=== PATIENT | female | born 1995 | race Caucasian/White ===

== ENCOUNTER 2018-05-10 13:48 | Emergency (ER) | payer MEDICAID, OTHER ==
[~2018-05-10] VITALS: Ht 175.3 cm; Wt 95.0 kg
--- NOTE | 2018-05-10 13:55 | NUR ---
PT TO ED IN CUSTODY WITH RITO AT BEDSIDE FOR HTN. BP UPON ARRIVAL IS 182/121. PT STATES IS 9.5 WEEKS . CONNECTED TO ALL MONITORS. HTN, TACKY 100S-110S, ALL OTHER VSS ON RA. PT STATES NO HTN HX. EKG COMPLETED. AWAITING EDMD ASSESSMENT.
[2018-05-10] MEDS ORDERED: DIPHENHYDRAMINE 25 MG CAPSULE ONE (14:09)
[2018-05-10 14:28] LABS: BASOPHILS # (AUTO) 0.02 x10^3/uL (0-0.1); BASOPHILS % (AUTO) 0 % (0-1); EOSINOPHILS # (AUTO) 0.01 x10^3/uL (0-0.4); EOSINOPHILS % (AUTO) 0 % (1-7); LYMPHOCYTES # (AUTO) 1.01 x10^3/uL (1-3.4); LYMPHOCYTES % (AUTO) 20 % (22-44); MD NO; MEAN CORPUSCULAR HGB CONC 33.3 g/dL (32.4-35.8); MEAN CORPUSCULAR VOLUME 90.3 fL (80-100); MEAN PLATELET VOLUME 10.1 fL (7.4-10.4); MONOCYTES # (AUTO) 0.37 x10^3/uL (0.2-0.8); MONOCYTES % (AUTO) 7 % (2-9); NEUTROPHILS # (AUTO) 3.68 x10^3/uL (1.8-6.8); NEUTROPHILS % (AUTO) 72 % (42-75); PLATELET COUNT 272 x10^3/uL (130-400); RED BLOOD COUNT 5.18 x10^6/uL (3.82-5.3); RED CELL DISTRIBUTION WIDTH 12.8 % (9.6-15.2)
[2018-05-10] MEDS ORDERED: PLEASE ENTER ALLERGIES MC SCH (14:30)
[2018-05-10] MEDS ORDERED: DIPHENHYDRAMINE 25 MG CAPSULE PO ONE (14:30)
[2018-05-10 14:35] LABS: MICROSCOPIC AUTO
[2018-05-10 14:38] LABS: CULTURE INDICATED? NO
[2018-05-10 14:38] LABS: ALBUMIN 3.7 g/dL (3.4-5.0); ANION GAP 7 mmol/L (5-15); CALCIUM 8.9 mg/dL (8.5-10.1); CHLORIDE 105 mmol/L (98-107); CREATININE 0.58 mg/dL (0.55-1.02)
--- NOTE | 2018-05-10 14:59 | NUR ---
ALL RESULTS BACK AT THIS TIME. BP DECLINING AFTER MEDICATION ADMINISTRATION. TACHY, ALL OTHER VSS ON RA. NO NEEDS AT THIS TIME. CHART UP FOR RECHECK.
[2018-05-10 16:07] VITALS: BP 154/95
--- NOTE | 2018-05-10 16:08 | NUR ---
EDMD TO BEDSIDE TO UPDATE ON POC. AWAITING DISPO.
== END 2018-05-10 16:48 | disposition home or self-care (01) ==
LOC: ED 15:10
DX: O16.1 Unspecified maternal hypertension, first trimester (principal); Z3A.10 10 weeks gestation of pregnancy
CPT/HCPCS: 36415; 80048; 81001; 82040; 85025; 93005; 99284; Q0163